=== PATIENT | female | born 1960 | race Caucasian/White ===

== ENCOUNTER 2020-06-20 11:21 | Emergency (ER) | payer BC, OTHER ==
[~2020-06-20 11:21] MED LIST: AZATHIOPRINE50 MG PO; CIPRO500 MG PO; COZAAR50 MG PO; LEVEMIR100 UNIT/1 SQ; NEURONTIN400 MG PO; NORCO 5-325 TA1 EACH PO; NOVOLOG100 UNIT/1 SC; PLAQUENIL 200200 MG PO; PRAVASTATIN SOD20 MG PO; ULTRAM50 MG PO; XARELTO 10 MG T10 MG PO
[2020-06-20 13:53] LABS: HEMOGLOBIN 13.3 gm/dl (12.3-15.3); RED BLOOD COUNT 4.43 M/UL (4.00-5.10); WHITE BLOOD COUNT 6.8 K/UL (4.5-11.0)
[2020-06-20 14:16] LABS: BUN/CREATININE RATIO 18 (0-10)
== END 2020-06-20 17:33 | disposition home or self-care (01) ==
LOC: ER1 11:21
PROVIDERS: Physician Assistant
DX: R07.9 Chest pain, unspecified (principal); E86.0 Dehydration; R42 Dizziness and giddiness; Z86.73 Personal history of transient ischemic attack (TIA), and cerebral infarction without residual deficits; I10 Essential (primary) hypertension; E11.9 Type 2 diabetes mellitus without complications; Z79.82 Long term (current) use of aspirin; Z88.1 Allergy status to other antibiotic agents; Z88.8 Allergy status to other drugs, medicaments and biological substances
CPT/HCPCS: 70450; 71045; 80053; 82550; 82553; 83874; 83880; 84484; 85025; 93005; 99285

== ENCOUNTER 2021-11-01 18:54 | Inpatient (IN) | payer BC ==
[~2021-11-01] VITALS: Ht 160 cm; Wt 130.6 kg
[~2021-11-01 18:54] MED LIST changes: -LEVEMIR100 UNIT/1 SQ; +NOVOLOG FL100 UNIT/1 INJ; -NOVOLOG100 UNIT/1 SC; +TOUJEO MAX300 UNIT/1 SQ
[2021-11-01 21:31] LABS: HEMOGLOBIN 11.6 gm/dl (12.3-15.3); RED BLOOD COUNT 3.97 M/UL (4.00-5.10); WHITE BLOOD COUNT 13.9 K/UL (4.5-11.0)
[2021-11-02 06:58] LABS: HEMOGLOBIN 10.9 gm/dl (12.3-15.3); RED BLOOD COUNT 3.68 M/UL (4.00-5.10)
[2021-11-02] MEDS ORDERED: AMITRIPTYLINE H50 MG PO (12:10)
[2021-11-02] MEDS ORDERED: METOPROLOL SUCC50 MG PO (12:12)
[2021-11-02] MEDS ORDERED: OZEMPIC1 MG/0.71 SQ (12:13)
[2021-11-02] MEDS ORDERED: FLONASE 0.05% N16 GM (12:14)
[2021-11-02] MEDS ORDERED: LEVOCETIRIZINE D5 MG PO (12:14)
[2021-11-02] MEDS ORDERED: LOVASTATIN40 MG PO (12:15)
[2021-11-02] MEDS ORDERED: METFORMIN HCL500 M2 PO (12:17)
[2021-11-02] MEDS ORDERED: ASPIRIN EC81 MG PO (12:18)
[2021-11-02] MEDS ORDERED: VITAMIN C500 M4 PO (12:19)
[2021-11-02] MEDS ORDERED: VITAMIN D325 MCG PO (12:19)
[2021-11-02 14:57] LABS: HEMOGLOBIN 10.5 gm/dl (12.3-15.3); RED BLOOD COUNT 3.6 M/UL (4.00-5.10)
[2021-11-03 06:20] LABS: HEMOGLOBIN 9.4 gm/dl (12.3-15.3)
[2021-11-03 06:32] LABS: RED BLOOD COUNT 3.22 M/UL (4.00-5.10); WHITE BLOOD COUNT 9.9 K/UL (4.5-11.0)
[2021-11-04 02:25] LABS: HEMOGLOBIN 9.1 gm/dl (12.3-15.3); RED BLOOD COUNT 3.09 M/UL (4.00-5.10); WHITE BLOOD COUNT 9.8 K/UL (4.5-11.0)
[2021-11-05 02:50] LABS: HEMOGLOBIN 9.2 gm/dl (12.3-15.3); RED BLOOD COUNT 3.14 M/UL (4.00-5.10); WHITE BLOOD COUNT 9.6 K/UL (4.5-11.0)
[2021-11-05 10:09] LABS: BUN/CREATININE RATIO 18 (0-10)
--- NOTE | 2021-11-05 13:20 | NUR ---
SPOKE WITH DR. VILLASENOR ABOUT REMOVING PTS CATHETAR. PT REFUSED. STATES SHE IS IN TO MUCH PAIN FOR THE CATHETAR TO BE REMOVED.
[2021-11-07 01:16] LABS: BUN/CREATININE RATIO 20 (0-10)
[2021-11-07 01:18] LABS: HEMOGLOBIN 9.7 gm/dl (12.3-15.3); RED BLOOD COUNT 3.35 M/UL (4.00-5.10); WHITE BLOOD COUNT 10.8 K/UL (4.5-11.0)
--- NOTE | 2021-11-07 01:37 | NUR ---
CONTACTED DR PHAM DUE TO PATIENT COMPLAINING OF SOA AND A SQUEEZING FEELING IN HER CHEST, DR. PHAM CAME TO FLOOR TO CHECK PATIENT, NEW ORDERS FOR D-D[facility]ER LAB AND PORTABLE CHEST XRAY WERE OBTAINED VERBALLY AND REPEATED BACK TO PROVIDER. PATIENT DENIES NUMBNESS AND TINGLING BUT STATES SHE HAS SOME NAUSEA AND UPSET STOMACH. INSTRUCTED PATIENT TO USE CALL [facility] IF CONDITION WORSENS, CALL [facility] WITHIN REACH OF PATIENT.
--- NOTE | 2021-11-07 07:27 | NUR ---
CONTACTED DR. PHAM FOR ELAVATED D-D[facility]ER [facility], HE ORDERED AT CT CHEST PE STAT.
[2021-11-10] MEDS ORDERED: PROTONIX 40 MG40 M1 PO (09:36)
[2021-11-10] MEDS ORDERED: CELECOXIB100 MG PO (09:36)
[2021-11-10] MEDS ORDERED: ENOXAPARIN30 MG/0.3 SC (09:36)
[2021-11-10] MEDS ORDERED: COZAAR25 MG PO (09:36)
[2021-11-10] MEDS ORDERED: PERCOCET 5-3251 EACH PO (09:36)
[2021-11-10] MEDS ORDERED: TOPROL XL25 MG PO (09:36)
[2021-11-10] MEDS ORDERED: DILAUDID 0.5 MG/0.5 IVP (09:46)
--- NOTE | 2021-11-10 12:12 | NUR ---
REPORT CALLED TO [facility], SPOKE WITH HENNA. PATIENT GOING TO ROOM 116. IV DISCONTINUED, CATHETER TIP INTACT. PATIENT TOLERATED WELL. HEART MONITOR DISCONTINUED. AWAITING EMS FOR TRANSPORT.
== END 2021-11-11 00:30 | DRG 493 ==
LOC: ER1 18:54 → CDU 21:31 → MED SURG 4 21:31
PROVIDERS: Family Medicine; Internal Medicine; Orthopaedic Surgery; Physician Assistant; ADMIT Internal Medicine Infectious Disease
PROC: 0QSG04Z Reposition Right Tibia with Internal Fixation Device, Open Approach (ICD-10-PCS; 2021-11-02)
PROC: 0QSG06Z Reposition Right Tibia with Intramedullary Internal Fixation Device, Open Approach (ICD-10-PCS; principal; 2021-11-02 11:44)
DX: S82.871A Displaced pilon fracture of right tibia, initial encounter for closed fracture (principal); J98.11 Atelectasis; N17.9 Acute kidney failure, unspecified; N30.00 Acute cystitis without hematuria; Z68.43 Body mass index [BMI] 50.0-59.9, adult; S82.201A Unspecified fracture of shaft of right tibia, initial encounter for closed fracture; I10 Essential (primary) hypertension; M32.9 Systemic lupus erythematosus, unspecified; G62.9 Polyneuropathy, unspecified; W01.0XXA Fall on same level from slipping, tripping and stumbling without subsequent striking against object, initial encounter; E11.649 Type 2 diabetes mellitus with hypoglycemia without coma; E11.621 Type 2 diabetes mellitus with foot ulcer; E66.01 Morbid (severe) obesity due to excess calories; L97.529 Non-pressure chronic ulcer of other part of left foot with unspecified severity; E78.5 Hyperlipidemia, unspecified; Z86.73 Personal history of transient ischemic attack (TIA), and cerebral infarction without residual deficits; Z98.890 Other specified postprocedural states; Z90.49 Acquired absence of other specified parts of digestive tract; Z88.0 Allergy status to penicillin; Z88.8 Allergy status to other drugs, medicaments and biological substances; Z82.49 Family history of ischemic heart disease and other diseases of the circulatory system
CPT/HCPCS: 36415; 71045; 72170; 73562; 73590; 73610; 73700; 76000; 80048; 80053; 81001; 82009; 82550; 82553; 82962; 83605; 84484; 85025; 85027; 85379; 85610; 86850; 86900; 86901; 93005; 96365; 96366; 96372; 96374; 96375; 96376; 97110-GP-CQ; 97116-GP-CQ; 97162; 97530; 97530-GP-CQ; 99285; C1713; G0378; J1100; J1170; J1650; J2001; J2185; J2270; J2405; J2704; J3010; J3370; J7050; J7070; Q9967; U0002